=== PATIENT | female | born 1950 | race Caucasian/White ===

== ENCOUNTER 2018-12-10 14:19 | Emergency (ER) | payer MEDICARE, OTHER ==
[~2018-12-10] VITALS: Ht 154.9 cm; Wt 76.4 kg
[2018-12-10 14:24] VITALS: BP 142/88; TEMP 98
[2018-12-10 15:24] LABS: BASO % 0.4 % (0.0-2.0); EOS # 0.1 (0.0-0.7); EOS % 1.7 % (0-4.0); GRAN # 5.3 (1.4-6.5); GRAN % 69.3 % (42.2-75.2); HEMATOCRIT 41.1 % (37.0-47.0); HEMOGLOBIN 12.9 g/dl (12.5-16.0); LYMPH # 1.5 (1.2-3.4); LYMPH % 19.2 % (20.0-51.0); MEAN CELL VOLUME 86 fl (80.0-100.0); MEAN CORPUSCULAR HEMOGLOBIN 27 pg (27.0-31.0); MEAN CORPUSCULAR HGB CONC 31 g/dl (33.0-37.0); MEAN PLATELET VOLUME 8.8 fl (7.4-10.4); MONO # 0.7 (0.1-0.6); MONO % 9.1 % (1.7-9.3); PLATELET COUNT 354 K/mm3 (130-400); RED BLOOD COUNT 4.76 M/mm3 (4.10-5.30); REDCELL DISTRIBUTION WIDTH-CV 16.2 % (11.5-14.5)
[2018-12-10 15:34] LABS: ALBUMIN 3.5 gm/dL (3.5-5.0); BILIRUBIN,TOTAL 0.3 mg/dL (0.0-1.0); CALCIUM 9.4 mg/dL (8.4-10.2); CREATININE, serum 0.69 (0.52-1.25); POTASSIUM 3.6 mmol/L (3.4-5.0); TOTAL PROTEIN 6.8 gm/dL (6.4-8.2)
[2018-12-10 15:36] LABS: COLLECTION METHOD CLEAN CATCH
[2018-12-10 15:43] LABS: MUCOUS Present /lpf; PH 6 (5-8); URINE APPEARANCE Clear; URINE BACTERIA None Seen /hpf; URINE BILIRUBIN Negative (NEGATIVE); URINE BLOOD Negative (NEGATIVE); URINE COLOR Yellow; URINE GLUCOSE Negative (NEGATIVE); URINE KETONE Negative (NEGATIVE); URINE LEUKOCYTE ESTERASE 1+ (NEGATIVE); URINE NITRATE Negative (NEGATIVE); URINE PROTEIN(semi-quant) Negative (NEGATIVE); URINE RBC 0-2 /hpf; URINE UROBILINOGEN Negative (NEGATIVE)
[2018-12-10] MEDS ORDERED: ULTRAM 50MG TAB50 MG PO (16:27)
[2018-12-10] MEDS ORDERED: REQUIP 0.5MG0.5 MG PO (16:27)
[2018-12-10] MEDS ORDERED: DEXILANT60 MG PO (16:28)
[2018-12-10] MEDS ORDERED: TOPAMAX50 MG PO (16:29)
[2018-12-10] MEDS ORDERED: SYNTHROID0.075 MG/T PO (16:29)
[2018-12-10] MEDS ORDERED: FOLIC ACID 11 MG/TA1 PO (16:31)
[2018-12-10] MEDS ORDERED: CYMBALTA 30MG30 MG PO (16:31)
[2018-12-10] MEDS ORDERED: ESTRACE0.1 MG/GM VG (16:32)
[2018-12-10] MEDS ORDERED: FOSAMAX 70MG TA70 MG PO (16:32)
[2018-12-10] MEDS ORDERED: GLUCOPHAGE1000 MG PO (16:33)
[2018-12-10] MEDS ORDERED: PLAQUENIL 200M200 MG PO (16:34)
[2018-12-10] MEDS ORDERED: ORENCIA250 MG IV (16:36)
[2018-12-10] MEDS ORDERED: B-121000 MCG PO (16:37)
[2018-12-10] MEDS ORDERED: MASON NATURAL2000 IU PO (16:37)
[2018-12-10] MEDS ORDERED: [UNRECOGNIZED DRUG - OTHER] PO (16:39)
[2018-12-10] MEDS ORDERED: IBEROGAST PO (16:40)
[2018-12-10] MEDS ORDERED: PERCOCET 325 MG1 TA2 PO (18:26)
[2018-12-10 18:50] VITALS: PULSE 81
== END 2018-12-10 18:50 | disposition home or self-care (01) ==
LOC: COL.ER 14:19
PROVIDERS: Emergency Medicine
DX: S12.000A Unspecified displaced fracture of first cervical vertebra, initial encounter for closed fracture (principal); S92.002A Unspecified fracture of left calcaneus, initial encounter for closed fracture; S92.252A Displaced fracture of navicular [scaphoid] of left foot, initial encounter for closed fracture; Z79.84 Long term (current) use of oral hypoglycemic drugs; W10.9XXA Fall (on) (from) unspecified stairs and steps, initial encounter
CPT/HCPCS: J1885; Q4041